=== PATIENT | female | born 1975 | race Caucasian/White ===

== ENCOUNTER → 2018-02-03 | Outpatient (CLI) | payer OTHER ==
[~2018-02-03] MED LIST: LEVO-366 PO; OXYC-57 PO; PROM25TA PO
== END | disposition home or self-care (01) ==
LOC: C.PATHSPEC 10:45
PROVIDERS: ATTEND Dentist Oral and Maxillofacial Pathology
DX: D10.39 Benign neoplasm of other parts of mouth (principal)